=== PATIENT | male | born 1975 | race Caucasian/White ===

== ENCOUNTER 2018-12-08 17:33 | Emergency (ER) | payer OTHER ==
[~2018-12-08] VITALS: Ht 172.7 cm; Wt 68.0 kg
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
[2018-12-08] MEDS ORDERED: MORPHINE SULFATE 10 MG/ML SYRINGE. SQ ONE (17:45)
[2018-12-08] MEDS ORDERED: HYDR-1179 PO (17:48)
[2018-12-08] MEDS ORDERED: BACITRACIN ZINC TOPICAL OINT PACKET. TP ONE (18:00)
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
[2018-12-08 19:16] VITALS: BP 151/97
== END 2018-12-08 20:23 | disposition home or self-care (01) ==
LOC: ER 17:33
DX: S82.831A Other fracture of upper and lower end of right fibula, initial encounter for closed fracture (principal); M19.90 Unspecified osteoarthritis, unspecified site; R10.2 Pelvic and perineal pain; Z88.0 Allergy status to penicillin; V29.49XA Motorcycle driver injured in collision with other motor vehicles in traffic accident, initial encounter; Y93.I9 Activity, other involving external motion; Y92.488 Other paved roadways as the place of occurrence of the external cause; Y99.8 Other external cause status
CPT/HCPCS: 29505; 72170; 73552; 73564; 73590; 73610; 73630; 96372; 99284; J2270

== ENCOUNTER 2018-12-27 17:00 | Emergency (ER) | payer OTHER ==
[~2018-12-27] VITALS: Ht 172.7 cm; Wt 68.0 kg
[~2018-12-27 17:00] MED LIST: HYDR-1179 PO
[2018-12-27 18:20] VITALS: BP 120/70
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
--- NOTE | 2018-12-27 19:02 | RAD ---
Exam: Right tibia fibula 2 views INDICATION: Pain TECHNIQUE: Frontal and lateral views of the right tibia and fibula Comparisons: 12/08/2018 FINDINGS: Mildly displaced obliquely oriented fracture through the mid fibula diaphysis. No other fractures seen. Soft tissues are unremarkable. Joint spaces are well-maintained. IMPRESSION: Mildly displaced obliquely oriented fracture through the mid fibula diaphysis. Unchanged alignment from prior exam. Electronically signed by: Avani Beatty MD (12/27/2018 6:59 PM) [facility]
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
== END 2018-12-27 19:24 | disposition home or self-care (01) ==
LOC: ER 17:05
DX: S82.831D Other fracture of upper and lower end of right fibula, subsequent encounter for closed fracture with routine healing (principal); M19.90 Unspecified osteoarthritis, unspecified site; Z88.0 Allergy status to penicillin; V89.2XXD Person injured in unspecified motor-vehicle accident, traffic, subsequent encounter
CPT/HCPCS: 73590; 73610; 99284

== ENCOUNTER 2020-11-16 14:06 | Emergency (ER) | payer BC, OTHER ==
[~2020-11-16] VITALS: Ht 172.7 cm; Wt 75.0 kg
--- NOTE | 2020-11-16 14:55 | RAD ---
EXAM: Chest, single view. HISTORY: Dizziness. COMPARISON: None. FINDINGS: A frontal view of the chest is obtained. There is no infiltrate, pleural effusion or pneumo thorax. The heart is normal in size. IMPRESSION: No acute pulmonary finding. Electronically signed by: Laila Gary MD (11/16/2020 2:52 PM) [id number]
[2020-11-16 14:56] LABS: BASO % 0 % (0-3); EOS # 0.1 x10^3/uL (0.0-0.7); EOS % 2 % (0-3); HEMATOCRIT 46.4 % (39.0-53.0); HEMOGLOBIN 16.1 g/dL (13.0-17.5); LYMPH # 1.8 x10^3/uL (1.0-4.8); LYMPH % 24 % (24-48); MEAN CORPUSCULAR HEMOGLOBIN 33 pg (25-35); MEAN CORPUSCULAR HGB CONC 35 g/dL (31-37); MEAN CORPUSCULAR VOLUME 95 fL (79-100); MONO # 0.7 x10^3/uL (0.0-1.1); MONO % 10 % (0-9); NEUT # 4.8 x10^3uL (1.8-7.7); NEUT % 64 % (31-73); PLATELET COUNT 237 x10^3/uL (140-400); RED BLOOD COUNT 4.89 x10^6/uL (4.30-5.70); RED CELL DISTRIBUTION WIDTH 12.8 % (11.5-14.5); WHITE BLOOD COUNT 7.5 x10^3/uL (4.0-11.0)
[2020-11-16 15:33] LABS: CALCIUM 8.7 mg/dL (8.5-10.1); CREATININE 0.8 mg/dL (0.7-1.3); POTASSIUM 3.8 mmol/L (3.5-5.1)
[2020-11-16 15:45] LABS: ALBUMIN 3.7 g/dL (3.4-5.0); TOTAL BILIRUBIN 0.4 mg/dL (0.2-1.0); TOTAL PROTEIN 7.4 g/dL (6.4-8.2)
--- NOTE | 2020-11-16 16:25 | EKG ---
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
--- NOTE | 2020-11-16 16:28 | PHYS DOC ---
Past History Past Medical History: Arthritis, Hepatitis Past Surgical History: No Surgical History Alcohol Use: Occasionally Drug Use: Marijuana Adult General Chief Complaint Chief Complaint: DIZZY/LIGHT HEADED [facility] HPI Patient is a 45-year-old previously healthy male who presents to the emergency room complaining of lightheadedness, chest pain, and concern for hepatitis. Patient went to see his primary physician today and told him that he has been having chest pain for the last year as well as dizziness and they sent him here for evaluation. Patient states that he has constant chest pain for the last year. It does not seem to get better or worse. He has not noticed any major changes in the pain. He does not have any associated symptoms with it. He gets intermittent dizziness typically when he first stands up. He states that se veral years ago he went to donate blood and they told him that he had hepatitis and he could not donate. Patient states has never been tested for hepatitis and has not followed up since that time. He denies any kind of itching, jaundice, nausea, vomiting, abdominal distention. He does mention that his had hepatitis C. Review of Systems Review of Systems Complete ROS is negative unless otherwise documented in HPI Allergies Allergies Allergies Coded Allergies Type Severity Reaction Last Updated Verified Penicillins Allergy Intermediate 11/16/20 Yes Physical Exam Physical Exam General: Awake, alert, NAD. Well Nourished, well hydrated. Cooperative HEENT: Atraumatic, EOMI, PERRL, airway patent, moist oral mucosa Neck: Supple, trachea midline Respiratory: CTA bilaterally, normal effort, no wheezing/crackles CV: RRR, no murmur, cap refill <2 GI: Soft, nondistended, nontender, no masses MSK: No obvious deformities Skin: Warm, dry, intact Neuro: A&O x3, speech NL, sensory and motor grossly intact, no focal deficits Psych: Normal affect, normal mood, not suicidal or homicidal Current Patient Data Vital Signs Vital Signs Date Time Temp Pulse Resp B/P (MAP) Pulse Ox O2 Delivery O2 Flow Rate FiO2 11/16/20 14:30 97.9 62 18 135/78 97 Room Air Lab Results Laboratory Tests Test 11/16/20 14:42 White Blood Count 7.5 x10^3/uL (4.0-11.0) Red Blood Count 4.89 x10^6/uL (4.30-5.70) Hemoglobin 16.1 g/dL (13.0-17.5) Hematocrit 46.4 % (39.0-53.0) Mean Corpuscular Volume 95 fL (79-100) Mean Corpuscular Hemoglobin 33 pg (25-35) Mean Corpuscular Hemoglobin Concent 35 g/dL (31-37) Red Cell Distribution Width 12.8 % (11.5-14.5) Platelet Count 237 x10^3/uL (140-400) Neutrophils (%) (Auto) 64 % (31-73) Lymphocytes (%) (Auto) 24 % (24-48) Monocytes (%) (Auto) 10 % (0-9) H Eosinophils (%) (Auto) 2 % (0-3) Basophils (%) (Auto) 0 % (0-3) Neutrophils # (Auto) 4.8 x10^3uL (1.8-7.7) Lymphocytes # (Auto) 1.8 x10^3/uL (1.0-4.8) Monocytes # (Auto) 0.7 x10^3/uL (0.0-1.1) Eosinophils # (Auto) 0.1 x10^3/uL (0.0-0.7) Basophils # (Auto) 0.0 x10^3/uL (0.0-0.2) Sodium Level 140 mmol/L (136-145) Potassium Level 3.8 mmol/L (3.5-5.1) Chloride Level 104 mmol/L (98-107) Carbon Dioxide Level 23 mmol/L (21-32) Anion Gap 13 (6-14) Blood Urea Nitrogen 9 mg/dL (8-26) Creatinine 0.8 mg/dL (0.7-1.3) Estimated GFR (Cockcroft-Gault) 105.0 BUN/Creatinine Ratio 11 (6-20) Glucose Level 82 mg/dL (70-99) Calcium Level 8.7 mg/dL (8.5-10.1) Total Bilirubin 0.4 mg/dL (0.2-1.0) Aspartate Amino Transferase (AST) 38 U/L (15-37) H Alanine Aminotransferase (ALT) 75 U/L (16-63) H Alkaline Phosphatase 91 U/L (46-116) Troponin I Quantitative < 0.017 ng/mL (0-0.055) NE-Tgr-U-Type Natriuretic Peptide 76 pg/mL (0-124) Total Protein 7.4 g/dL (6.4-8.2) Albumin 3.7 g/dL (3.4-5.0) Albumin/Globulin Ratio 1.0 (1.0-1.7) EKG EKG [] Radiology/Procedures Radiology/Procedures [] Heart Score C/O Chest Pain: Yes HEART Score for Chest Pain: HEART Score for Chest Pain Response (Comments) Value History Slighlty/Non-Suspicious 0 ECG Normal 0 Age < 45 0 Risk Factors >3 Risk Factors or Hx CAD 2 Troponin < Normal Limit 0 Total 2 Risk Factors: Risk Factors: DM, Current or recent (<one month) smoker, HTN, HLP, family history of CAD, obesity. Risk Scores: Risk Factors: DM, Current or recent (<one month) smoker, HTN, HLP, family hi story of CAD, obesity. Course & Med Decision Making Course & Med Decision Making Pertinent Labs and Imaging studies reviewed. (See chart for details) Patient is a 45 year-old male who presents to the Emergency Room complaining of chest pain and is concerned about possible hepatitis. History is significant for chest pain for a year. At this time, given patient's risk factors and story there is concern for possible cardiac pathology. EKG was ordered and shows normal. At this time there is no signs of STEMI, pericarditis, or unstable arrthymia on EKG. Patient has received aspirin today. CBC, BMP, troponin, CXR were ordered to evaluate for causes of chest pain including ACS, anemia, electrolyte abnormalities that can lead to arrhythmias, PTX, pneumonia, pneumomediastinum. Patient does not have any abdominal tenderness that would suggest pancreaititis or cholecystitis and does not need an abdominal work up at this time. Patient's HEART score is 1 placing the patient at low risk. Patient does not need a delta troponin as he has had constant pain for quite some time. Lab work does show some elevated liver enzymes. There is no signs of jaundice or liver failure. I have discussed the case with his primary care physician Dr. Moncada. Dr. Moncada states that he will follow him up in the clinic. I have discussed with him that if his chest pain gets worse or he has any new symptoms he should return to the emergency room for evaluation. Patient states understanding. Patient's test results and vitals while in the ED were fully reviewed and discussed with the patient. Patient is stable and at this time does not need admission to the hospital. We have discussed strict return precautions and the importance of following up with their Primary Care Physician. Patient stated understanding and was given an opportunity to ask any questions. Patient is in agreement with plan. Dragon Disclaimer Dragon Disclaimer This electronic medical record was generated, in whole or in part, using a voice recognition dictation system. Departure Departure: Impression: Primary Impression: Dizziness Additional Impression: Elevated liver enzymes Disposition: HOME / SELF CARE / HOMELESS Condition: STABLE Referrals: MARIO MONCADA MD (PCP) Patient Instructions: Dizziness Problem Qualifiers FRANSISCO OTTO MD Nov 16, 2020 16:28
[2020-11-16 16:57] VITALS: BP 109/52
[2020-11-16 17:51] LABS: ALBUMIN 3.7 g/dL (3.4-5.0); DIRECT BILIRUBIN 0.1 mg/dL (0.0-0.2); TOTAL BILIRUBIN 0.4 mg/dL (0.2-1.0); TOTAL PROTEIN 7.5 g/dL (6.4-8.2)
== END 2020-11-16 16:57 | disposition home or self-care (01) ==
LOC: ER 14:06
DX: R42 Dizziness and giddiness (principal); R74.8 Abnormal levels of other serum enzymes; R07.9 Chest pain, unspecified; M19.90 Unspecified osteoarthritis, unspecified site; Z88.0 Allergy status to penicillin
CPT/HCPCS: 36415; 71045; 80053; 80076; 83880; 84484; 85025; 86705; 86709; 86803; 87340; 87522; 93005; 99285-25